=== PATIENT | female | born 1990 | race African-American/Black ===

== ENCOUNTER 2017-07-22 08:27 | Inpatient (IN) | payer OTHER ==
[2017-07-22] VITALS (7 sets, daily range): BP systolic 119–138; BP diastolic 75–87
[~2017-07-22] VITALS: Ht 167.6 cm; Wt 104.8 kg
--- NOTE | ~2017-07-22 | 2DMMODE ---
[facility] [address] [facility] [employer] [place] [place] [address] 2 D/M-MODE ECHOCARDIOGRAM Name: YOKO REES MICHELLE Room #: 444-P ADM IN M.R.#: [id number] Admission: 07/22/17 Attend Phys: Ron Arce, Discharge: Date of : 88 Date of Service: 07/22/17 1512 Report #: [id number] THIS REPORT FOR: //name// APPROVED REPORT Study performed: 07/22/2017 13:35:13 EXAM: Comprehensive 2D, Doppler, and color-flow Echocardiogram Patient Location: Bedside Room #: 444 Status: routine BSA: 2.11 HR: 60 bpm BP: 138/78 mmHg Other Information Study Quality: Good Indications Pulmonary Embolism Hx HTN, SOB, CP 2D Dimensions RVDd: 38.93 mm LVEF(%): 71.12 (>50%) IVSd: 8.57 (7-11mm) LVOT Diam: 22.61 (18-24mm) LVDd: 48.36 mm PWd: 11.22 (7-11mm) Ascending Ao: 26.40 (22-36mm) LVDs: 28.78 (25-40mm) Aortic Root: 27.01 mm IVC: 1.70 mm Huddleston's LVEF: 71.12 % Volumes Left Atrial Volume (Systole) Single Plane 4CH: 44.75 mL Single Plane 2CH: 56.39 mL LA ESV Index: 28.00 mL/m2 Aortic Valve AoV Peak Dudley.: 1.44 m/s AO Peak Gr.: 8.25 mmHg LVOT Max P.85 mmHg LVOT Max V: 0.84 m/s LISSET Vmax: 2.36 cm2 Mitral Valve E/A Ratio: 1.4 MV Decel. Time: 209.07 ms [facility] [place] [address] 2 D/M-MODE ECHOCARDIOGRAM Name: CAB[facility]OKO [facility] Room #: 444-P [facility] IN M.R.#: [id number] Admission: 07/22/17 Attend Phys: Ron Arce, Discharge: Date of : 88 Date of Service: 07/22/17 1512 Report #: [id number] MV E Max Dudley.: 0.92 m/s MV A Dudley.: 0.64 m/s MV PHT: 60.63 ms IVRT: 96.89 ms Pulmonary Valve PV Peak Dudley.: 1.04 m/s PV Peak Gr.: 4.31 mmHg Pulmonary Vein P Vein S: 0.44 m/s P Vein A: 0.23 m/s P Vein D: 0.32 m/s P Vein A Dur.: 124.6 msec P Vein S/D Ratio: 1.38 Tricuspid Valve TR Peak Dudley.: 2.68 m/s RAP Estimate: 5.00 mmHg TR Peak Gr.: 28.76 mmHg PA Pressure: 34.00 mmHg Left Ventricle The left ventricle is normal size. Borderline concentric left ventricular hypertrophy. The left ventricular systolic function is normal. The left ventricular ejection fraction is within the normal range. LVEF is 55-60%. The left ventricular diastolic function is normal. Right Ventricle The right ventricle is normal size. The right ventricular systolic function is normal. Atria The left atrium size is normal. Right atrium is normal. Aortic Valve The aortic valve is normal in structure. No aortic regurgitation is present. There is no aortic valvular stenosis. Mitral Valve The mitral valve is normal in structure. There is no mitral valve regurgitation noted. No evidence of mitral valve stenosis. Tricuspid Valve The tricuspid valve is normal in structure. There is trace tricuspid regurgitation. The right atrial pressure is estimated at 5 mmHg. There is mild pulmonary hypertension with an estimated PAP of mmHg. [address] [address] 2 D/M-MODE ECHOCARDIOGRAM Name: YOKO REES Room #: 444-P [facility] IN ..#: [id number] Admission: 07/22/17 Attend Phys: Ron Arce, Discharge: Date of : 88 Date of Service: 07/22/17 1512 Report #: [id number] Pulmonic Valve The pulmonary valve is normal in structure. Trace pulmonic regurgitation. Great Vessels The aortic root is normal in size. IVC is normal in size and collapses >50% with inspiration. Pericardium There is no pericardial effusion. <Conclusion> The left ventricle is normal size. Borderline concentric left ventricular hypertrophy. The left ventricular systolic function is normal. The left ventricular diastolic function is normal. The right ventricle is normal size. The left atrium size is normal. The aortic valve is normal in structure. The mitral valve is normal in structure. There is no pericardial effusion. <ELECTRONICALLY SIGNED> By: Jacob Zendejas MD 07/22/17 151 11 11 Jacob Zendejas MD /INF
[~2017-07-22 08:27] MED LIST: ALBUTEROL INH; ALBUTEROL INHAL17 GM IH; AMOXICILLIN 50500 M1 PO; AMOXICILLIN875 MG PO; APAP/CODEINE ELI5 M1 PO; APAP500; CEPHALEXIN 500500 M2; COLACE 100 MG100 MG; CONCERTA; DERMOPLAST SPRA56 ML; HYDROCORTISONE30 G9; IBUPROFEN 800800 M1; IRON325; LABETALOL HCL200 MG PO; LANOLIN56 GM; NORCO 5-325 TA1 EACH PO; PREDNISONE 10 M10 MG PO; PROCARDIA XL30 MG PO; PROVENTIL IH; TRINATE TABLET1 TAB PO; TUCKS MEDICATE1 EAC1; VENTOLIN17 GM INH; ZOFRAN ODT4 MG PO; ZPAK PO; no home meds
[2017-07-22] MEDS ORDERED: SERTRALINE HCL50 MG PO (08:47)
[2017-07-22] MEDS ORDERED: HYDROCHLOROTH12.5 M1 PO (08:47)
[2017-07-22] MEDS ORDERED: NIFEDIPINE ER90 M1 PO (08:48)
[2017-07-23 04:10] VITALS: BP 151/87
[2017-07-23 08:00] VITALS: BP 154/96
[2017-07-23 14:45] LABS: HEMATOCRIT 29.7 % (37.0-47.0); HEMOGLOBIN 9.5 gm/dL (12.0-15.0); MCH 24.7 pg (26.0-34.0); MCV 77.2 fL (80.0-100.0); RBC 3.85 mil/uL (4.20-5.00); RDW 18.8 % (10.5-14.5); WBC 5.2 thou/uL (4.0-11.0)
[2017-07-23 14:59] LABS: ALKALINE PHOSPHATASE 85 U/L (46-116); ANION GAP 6 mmol/L (7-16); BUN 8 mg/dL (7-18); CALCIUM 8.2 mg/dL (8.5-10.1); CHLORIDE 106 mmol/L (98-107); CO2 28 mmol/L (21-32); CREATININE 0.9 mg/dL (0.6-1.0); GLUCOSE 94 mg/dL (74-106); POTASSIUM 3.1 mmol/L (3.5-5.1); SGOT 14 U/L (15-37); SGPT 12 U/L (30-65); SODIUM 140 mmol/L (136-145); TOTAL BILIRUBIN < 0.1 mg/dL (<0.1-1.0); TOTAL PROTEIN 6.4 g/dL (6.4-8.2)
[2017-07-23 15:46] VITALS: BP 149/85
[2017-07-23 20:06] VITALS: BP 148/99
[2017-07-24 06:31] VITALS: BP 133/79
[2017-07-24 06:38] LABS: CREATININE 0.8 mg/dL (0.6-1.0); MAGNESIUM 1.6 mg/dL (1.8-2.4)
[2017-07-24 08:44] VITALS: BP 139/79
[2017-07-24] MEDS ORDERED: PRADAXA150 MG PO (11:05)
[2017-07-24] MEDS ORDERED: ENOXAPARIN100 MG/11 SUBQ (11:05)
[2017-07-24 11:19] VITALS: BP 139/79
[2017-07-24 15:43] VITALS: BP 139/79
[2017-07-28 01:09] LABS: ANTITHROMBIN III 89 % (75-135); FACTOR VIII-AHF 221 % (57-163)
== END 2017-07-24 15:15 | disposition home or self-care (01) | DRG 176 ==
LOC: ER 08:27 → 4S 10:46
PROVIDERS: Internal Medicine Geriatric Medicine; Internal Medicine Hematology & Oncology
DX: I26.99 Other pulmonary embolism without acute cor pulmonale (principal); J90 Pleural effusion, not elsewhere classified; J45.909 Unspecified asthma, uncomplicated; I10 Essential (primary) hypertension; F32.9 Major depressive disorder, single episode, unspecified; F17.210 Nicotine dependence, cigarettes, uncomplicated; F12.90 Cannabis use, unspecified, uncomplicated; Z79.899 Other long term (current) drug therapy; Z84.89 Family history of other specified conditions; Z80.0 Family history of malignant neoplasm of digestive organs
CPT/HCPCS: 10100

== ENCOUNTER 2017-12-04 23:32 | Emergency (ER) | payer OTHER ==
[~2017-12-04] VITALS: Ht 167.6 cm; Wt 99.8 kg
--- NOTE | ~2017-12-04 | EKG ---
[address] [address] ELECTROCARDIOGRAM REPORT Name: YOKO REES [id number] Admission: 12/04/17 Attend Phys: Discharge: 12/05/17 Date of : 88 Report #: [id number] THIS REPORT FOR: //name// [facility] ED Test Date: 2017-12-04 Test Time: 23:56:58 Pat Name: YOKO REES Department: Room: Gender: F Smt Technician: BERNARDOJoyceBUTCH : 1990 Requested By: Khanh Dugan Order Number: [id number] MD: Shaggy Dickerson Measurements Intervals Max Rate: 84 P: 70 DC: 152 QRS: 44 QRSD: 81 T: 40 QT: 381 QTc: 451 Interpretive Statements Sinus rhythm No significant abnormality Compared to ECG 09/18/2012 21:56:51 Sinus bradycardia no longer present Electronically Signed On 12-05-2017 13:49:18 PRESSING MACHINE TENDER by Shaggy Dickerson [email or web address] <ELECTRONICALLY SIGNED> By: Shaggy Dickerson MD, [facility] 12/05/17 1349 [id number] [id number] Shaggy Dickerson MD, FACC /EPI
[~2017-12-04 23:32] MED LIST changes: +ENOXAPARIN100 MG/11 SUBQ; +HYDROCHLOROTH12.5 M1 PO; +NIFEDIPINE ER90 M1 PO; +PRADAXA150 MG PO; +SERTRALINE HCL50 MG PO
[2017-12-05 00:31] LABS: ABSOLUTE NEUTROPHILS 5.1 thou/uL (1.4-8.2); BASOPHILS 0.4 % (0.0-2.0); EOSINOPHILS 4.2 % (0.0-3.0); HEMATOCRIT 34.7 % (37.0-47.0); HEMOGLOBIN 10.9 gm/dL (12.0-15.0); LYMPHOCYTES 26.1 % (24.0-44.0); MCH 23.2 pg (26.0-34.0); MCHC 31.5 g/dL (28.0-37.0); MCV 73.8 fL (80.0-100.0); MONOCYTES 3.3 % (1.0-8.0); PLATELET COUNT 207 thou/uL (150-400); RDW 19.2 % (10.5-14.5); WBC 7.7 thou/uL (4.0-11.0)
[2017-12-05 00:32] LABS: ANION GAP 9 mmol/L (7-16); BUN 7 mg/dL (7-18); CALCIUM 8.5 mg/dL (8.5-10.1); CHLORIDE 104 mmol/L (98-107); CO2 27 mmol/L (21-32); CREATININE 0.8 mg/dL (0.6-1.0); GLUCOSE 108 mg/dL (74-106); POTASSIUM 3.2 mmol/L (3.5-5.1); SODIUM 140 mmol/L (136-145)
[2017-12-05 00:41] LABS: TROPONIN-I < 0.04 ng/mL (<0.06)
[2017-12-05 01:07] LABS: ANISOCYTOSIS 2+; HYPOCHROMASIA 1+; MICROCYTES 1+; POLYCHROMASIA 1+
[2017-12-05 02:07] VITALS: BP 137/89
== END 2017-12-05 02:08 | disposition home or self-care (01) ==
LOC: ER 23:32
PROVIDERS: Emergency Medicine
DX: R07.89 Other chest pain (principal); F17.210 Nicotine dependence, cigarettes, uncomplicated; J45.909 Unspecified asthma, uncomplicated; I10 Essential (primary) hypertension; Z98.890 Other specified postprocedural states

== ENCOUNTER 2018-04-30 17:22 | Emergency (ER) | payer OTHER ==
[~2018-04-30] VITALS: Ht 167.6 cm; Wt 90.7 kg
--- NOTE | ~2018-04-30 | EKG ---
[address] [address] ELECTROCARDIOGRAM REPORT Name: YOKO REES [id number] Admission: 04/30/18 Attend Phys: Discharge: 04/30/18 Date of : 88 Report #: [id number] THIS REPORT FOR: //name// [facility] ED Test Date: 2018-04-30 Test Time: 17:30:55 Pat Name: YOKO REES Department: Room: Gender: F Carpenter: billy : 1990 Requested By: Damian Ontiveros Order Number: [id number] MD: Jacob Zendejas Measurements Intervals [place] Rate: 90 P: 56 [place]: 143 QRS: 47 QRSD: 83 T: 27 QT: 367 QTc: 449 Interpretive Statements Sinus rhythm Probable left atrial enlargement Compared to ECG 12/04/2017 23:56:58 No significant changes Electronically Signed On 05-01-2018 12:57:13 CDT by Jacob Zendejas [email or web address] <ELECTRONICALLY SIGNED> By: Jacob Zendejas MD 05/01/18 1257 1730 1730 Jacob Zendejas MD /SAVANNAH
[2018-04-30] MEDS ORDERED: HYDROCHLOROTH12.5 M1 PO (17:45)
[2018-04-30] MEDS ORDERED: ZYPREXA5 MG PO (17:45)
[2018-04-30 18:11] LABS: ABSOLUTE NEUTROPHILS 7.1 thou/uL (1.4-8.2); BASOPHILS 0.7 % (0.0-2.0); EOSINOPHILS 3.8 % (0.0-3.0); HEMATOCRIT 28.8 % (37.0-47.0); HEMOGLOBIN 9.2 gm/dL (12.0-15.0); MCH 23.5 pg (26.0-34.0); MCHC 31.9 g/dL (28.0-37.0); MCV 73.6 fL (80.0-100.0); PLATELET COUNT 233 thou/uL (150-400); POLYS 74.5 % (36.0-66.0); RBC 3.92 mil/uL (4.20-5.00); WBC 9.5 thou/uL (4.0-11.0)
[2018-04-30 18:22] LABS: ANION GAP 9 mmol/L (7-16); BUN 10 mg/dL (7-18); CALCIUM 8.6 mg/dL (8.5-10.1); CHLORIDE 103 mmol/L (98-107); CO2 27 mmol/L (21-32); CREATININE 0.9 mg/dL (0.6-1.0); GLUCOSE 104 mg/dL (74-106); SODIUM 139 mmol/L (136-145)
[2018-04-30 18:30] LABS: ALBUMIN 3.5 g/dL (3.4-5.0); SGOT 16 U/L (15-37); SGPT 14 U/L (30-65); TOTAL BILIRUBIN 0.2 mg/dL (<0.1-1.0); TOTAL PROTEIN 7.6 g/dL (6.4-8.2); TROPONIN-I < 0.04 ng/mL (<0.06)
[2018-04-30] MEDS ORDERED: PROMETHAZINE/C118 ML PO (19:07)
[2018-04-30] MEDS ORDERED: ZYRTEC10 M2 PO (19:07)
[2018-04-30] MEDS ORDERED: PREDNISONE 20 M20 MG PO (19:07)
[2018-04-30 20:06] LABS: ANISOCYTOSIS 2+; HYPOCHROMASIA 1+; MICROCYTES 2+; PLATELET ESTIMATE NORMAL
== END 2018-04-30 19:22 | disposition home or self-care (01) ==
LOC: ER 17:22
PROVIDERS: Physician Assistant
DX: J45.909 Unspecified asthma, uncomplicated (principal); J00 Acute nasopharyngitis [common cold]; D53.9 Nutritional anemia, unspecified; E87.6 Hypokalemia; R07.81 Pleurodynia; I10 Essential (primary) hypertension; F17.210 Nicotine dependence, cigarettes, uncomplicated